=== PATIENT | male | born 1975 | race Caucasian/White ===

== ENCOUNTER 2019-05-22 18:08 | Emergency (ER) | payer OTHER ==
[~2019-05-22] VITALS: Ht 172.7 cm; Wt 95.5 kg
[2019-05-22] MEDS ORDERED: LIDOcaine 1% 30ml preserv. free vial ONE (19:00)
[2019-05-22] MEDS ORDERED: TETanus/Pertussis (Acell)/Diphther VAC/PF (Tdap-Adult) 0.5ml syringe IM ONE (19:35)
--- NOTE | 2019-05-22 19:37 | NUR ---
GENNA GOULD IN ROOM WITH LAC TRAY SET UP PATIENT SOAK HIS HAND IN BETADINE TINGED STERILE NS
[2019-05-22 20:18] VITALS: BP 124/65
== END 2019-05-22 19:55 | disposition home or self-care (01) ==
LOC: ER 18:10
DX: S61.011A Laceration without foreign body of right thumb without damage to nail, initial encounter (principal); W45.8XXA Other foreign body or object entering through skin, initial encounter; Y93.89 Activity, other specified; Y92.89 Other specified places as the place of occurrence of the external cause; Y99.8 Other external cause status
CPT/HCPCS: 12001; 90471; 90715; 99283; J2001